=== PATIENT | male | born 1990 | race Caucasian/White ===

== ENCOUNTER 2017-01-21 06:49 | Emergency (ER) | payer SELFPAY ==
--- NOTE | ~2017-01-21 | CR230 ---
[facility]. [facility] A Service of [facility] & [facility] RADIOLOGY TEXT RESULTS PATIENT: LAURE DENTON LOCATION: SED : 88 UNIT #: [id number] AGE: [address]: James Giraldo MD SEX: M ORDER DR: [id number] [place] [id number] E MR#: [id number] Acc #: [id number] NAME: LAURE DENTON : 1990 SEX: M STUDY DATE/TIME: 01/21/2017 7:19 UNIT: SED ROOM: STUDY DESCRIPTION: CR Shoulder Min 2 View Rt Attending Physician: James Giraldo M.D. Ordering Physician: James Giraldo M.D. Primary Care Physician: No Primary Care Physician MEDICAL IMAGING REPORT This report is preliminary unless electronic signature is present. EXAM Right shoulder, 3 views. HISTORY Right shoulder pain beginning yesterday. No injury. FINDINGS Three views are submitted. The bony elements are intact and in normal alignment. No fractures, bony destruction, or periostitis. CONCLUSION Normal Dictated by... Tera Rubio M.D. THIS IS AN ELECTRONICALLY VERIFIED REPORT Tera Rubio M.D. at 01/22/2017 3:21 PM NEVAEH/patricia TD: 01/21/2017 10:09 JOB #: [id number] MEDICAL IMAGING REPORT Page 1 of 1
[~2017-01-21 06:49] MED LIST: NO MEDICATIONS
== END 2017-01-21 08:20 | disposition home or self-care (01) ==
LOC: SED 06:49
DX: S46.911A Strain of unspecified muscle, fascia and tendon at shoulder and upper arm level, right arm, initial encounter (principal); F17.200 Nicotine dependence, unspecified, uncomplicated; Z88.0 Allergy status to penicillin; X58.XXXA Exposure to other specified factors, initial encounter; Y92.9 Unspecified place or not applicable
CPT/HCPCS: 73030; 99283